=== PATIENT | male | born 1960 | race Caucasian/White ===

== ENCOUNTER 2019-11-07 14:03 | Emergency (ER) | payer OTHER ==
[~2019-11-07] VITALS: Ht 182.9 cm; Wt 113.4 kg
[~2019-11-07 14:03] MED LIST: ATEN25TA PO; [UNRECOGNIZED DRUG - OTHER]
--- NOTE | 2019-11-07 14:03 | NUR ---
PT BIBRA C/O CONFUSION PER PT HE SMOKED WEED EARLIER. PT IS AAOX2, NOT IN RESPIRATORY DISTRESS, HOOKED TO OVERCOIL STEPPER, KEPT RESTED AND COMFORTABLE. WILL CONTINUE TO MONITOR.
--- NOTE | 2019-11-07 14:19 | NUR ---
SEEN AND EXAMINED BY .
--- NOTE | 2019-11-07 14:31 | NUR ---
URINAL GIVEN BUT UNABLE TO PROVIDE URINE SPECIMEN THIS TIME.
--- NOTE | 2019-11-07 14:44 | NUR ---
PT IS WHEELED TO CT SCAN VIA [facility].
--- NOTE | 2019-11-07 15:34 | NUR ---
Patient discharged to home in stable condition. Written and verbal after care instructions given. Patient verbalizes understanding of instruction.
[2019-11-07 15:35] VITALS: BP 134/82
== END 2019-11-07 15:36 | disposition home or self-care (01) ==
LOC: ER 14:06
DX: F12.10 Cannabis abuse, uncomplicated (principal); R41.0 Disorientation, unspecified; I10 Essential (primary) hypertension; Z79.899 Other long term (current) drug therapy
CPT/HCPCS: 70450-TC